=== PATIENT | male | born 1975 | race Caucasian/White ===

== ENCOUNTER 2021-07-08 18:08 | Emergency (ER) | payer OTHER ==
[2021-07-08 19:17] LABS: HEMOGLOBIN 12.3 gm/dl (14.0-17.5); RED BLOOD COUNT 4.1 M/UL (4.20-5.50); WHITE BLOOD COUNT 11.1 K/UL (4.5-11.0)
[2021-07-08 19:33] LABS: BUN/CREATININE RATIO 9 (0-10)
== END 2021-07-08 23:55 | disposition home or self-care (01) ==
LOC: ER1 18:08
PROVIDERS: Physician Assistant Medical
DX: R22.1 Localized swelling, mass and lump, neck (principal); I10 Essential (primary) hypertension; F17.200 Nicotine dependence, unspecified, uncomplicated
CPT/HCPCS: 70491; 80053; 83605; 85025; 87040; 99283; Q9967